=== PATIENT | male | born 1980 | race Caucasian/White ===

== ENCOUNTER 2017-07-03 16:05 | Emergency (ER) | payer OTHER ==
[2017-07-03 16:10] VITALS: BP 121/97; PULSE 79; RESP 17; TEMP 97.7; O2SAT 98
--- NOTE | 2017-07-03 16:45 | EDPHY ---
H & P Time Seen by Provider: 07/03/17 16:44 HPI/ROS: Chief complaint. Abdominal pain HPI. Patient is 36-year-old male left upper quadrant pain for about 2 hr. He describes it as intermittent muscle spasms that are somewhat sharp and stabbing. Is located in the left upper quadrant of his abdomen. No radiation. He thinks his muscles might be tight from his work out yesterday. He has had similar symptoms previously. He took a Flexeril about 1 and 0.5 hr ago after the onset. His appetite is okay. No vomiting or diarrhea. Again he describes it as spasms. No urinary symptoms. No chest discomfort or trouble breathing. Denies trauma ROS Constitutional. no fever/chills, no weakness Eyes. no problems with vision ENT. no sore throat, no nasal drainage Cardiovascular. no chest pain Respiratory. no shortness of breath, no cough Abdominal. Left upper quadrant abdominal pain and muscle spasm . no problems urinating MS. no calf pain/swelling, no neck/back pain, no joint pain Skin. no rash Lymph. no swollen glands Neuro. no headache, no dizziness, no difficulty walking or with speech Past Medical/Surgical History: Left arm surgery, penile fracture Social History: , daily smoker, no alcohol Smoking Status: Heavy smoker Physical Exam: General Appearance: Alert well-developed male mild distress vital signs are stable Eyes: Pupils equal and round no pallor or injection. ENT, Mouth: Mucous membranes are moist. Respiratory: There are no retractions, lungs are clear to auscultation. Cardiovascular: Regular rate and rhythm. Gastrointestinal: Abdomen is soft with mild left upper quadrant tenderness. No masses are present. Normal bowel sounds. No muscle spasm currently. Neurological: Awake and alert, sensory and motor exams grossly normal. Skin: Warm and dry, no rashes. Musculoskeletal: Neck is supple nontender. Extremities symmetrical, full range of motion. Psychiatric: Patient is oriented X 3, there is no agitation. Constitutional: Initial Vital Signs Temperature (C) 36.5 C 07/03/17 16:08 Heart Rate 79 07/03/17 16:08 Respiratory Rate 17 07/03/17 16:08 Blood Pressure 121/97 H 07/03/17 16:08 O2 Sat (%) 98 07/03/17 16:08 O2 Delivery Mode Room Air Allergies/Adverse Reactions: No Known Allergies Allergy (Verified 07/03/17 16:07) Home Medications: Medication Instructions Recorded Cyclobenzaprine [Flexeril 10 MG 10 mg PO TID PRN #15 tab 07/03/17 (*)] Medical Decision Making ED Course/Re-evaluation: Re-evaluation 6:00 p.m.. Patient is stable. His spasm symptoms of the abdominal musculature are decreasing. The patient, his , and I discussed lab results including treatment plan and importance of follow-up and further evaluation as well as criteria for return. They expressed understanding and agreed Differential Diagnosis: This appears to be abdominal musculature spasm. Possibly from working out yesterday. No evidence for acute abdomen. I considered kidney stone as well as pancreatitis. - Data Points Laboratory Results: Laboratory Results 07/03/17 17:05 07/03/17 17:05 07/03/17 07/03/17 07/03/17 17:05 17:05 17:05 WBC 4.74 10^3/uL 10^3/uL (3.80-9.50) RBC 4.21 10^6/uL L 10^6/uL (4.40-6.38) Hgb 14.1 g/dL g/dL (13.7-17.5) Hct 39.1 % L % (40.0-51.0) MCV 92.9 fL fL (81.5-99.8) MCH 33.5 pg pg (27.9-34.1) MCHC 36.1 g/dL g/dL (32.4-36.7) RDW 12.2 % % (11.5-15.2) Plt Count 272 10^3/uL 10^3/uL (150-400) MPV 9.0 fL fL (8.7-11.7) Neut % (Auto) 51.4 % % (39.3-74.2) Lymph % (Auto) 36.3 % % (15.0-45.0) Foster % (Auto) 9.9 % % (4.5-13.0) Eos % (Auto) 1.1 % % (0.6-7.6) Baso % (Auto) 1.1 % % (0.3-1.7) Nucleat RBC Rel Count 0.0 % % (0.0-0.2) Absolute Neuts (auto) 2.44 10^3/uL 10^3/uL (1.70-6.50) Absolute Lymphs (auto) 1.72 10^3/uL 10^3/uL (1.00-3.00) Absolute Monos (auto) 0.47 10^3/uL 10^3/uL (0.30-0.80) Absolute Eos (auto) 0.05 10^3/uL 10^3/uL (0.03-0.40) Absolute Basos (auto) 0.05 10^3/uL 10^3/uL (0.02-0.10) Absolute Nucleated RBC 0.00 10^3/uL 10^3/uL (0-0.01) Immature Gran % 0.2 % % (0.0-1.1) Immature Gran # 0.01 10^3/uL 10^3/uL (0.00-0.10) Sodium 146 mEq/L H mEq/L (134-144) Potassium 4.0 mEq/L mEq/L (3.5-5.2) Chloride 106 mEq/L mEq/L (97-110) Carbon Dioxide 22 mEq/l mEq/l (22-31) Anion Gap 18 mEq/L H mEq/L (8-16) BUN 8 mg/dL mg/dL (7-23) Creatinine 0.9 mg/dL mg/dL (0.7-1.3) Estimated GFR > 60 Glucose 103 mg/dL H mg/dL (70-100) Calcium 9.8 mg/dL mg/dL (8.5-10.4) Total Bilirubin 0.2 mg/dL mg/dL (0.1-1.4) Conjugated Bilirubin 0.2 mg/dL mg/dL (0.0-0.5) Unconjugated Bilirubin 0.0 mg/dL mg/dL (0.0-1.1) AST 63 IU/L H IU/L (17-59) ALT 70 IU/L IU/L (21-72) Alkaline Phosphatase 69 IU/L IU/L (38-126) Total Protein 7.6 g/dL g/dL (6.3-8.2) Albumin 4.5 g/dL g/dL (3.5-5.0) Lipase 55 IU/L IU/L (23-300) Urine Color PALE YELLOW Urine Appearance CLEAR Urine pH 6.0 (5.0-7.5) Ur Specific [place] 1.002 (1.002-1.030) Urine Protein NEGATIVE (NEGATIVE) Urine Ketones NEGATIVE (NEGATIVE) Urine Blood NEGATIVE (NEGATIVE) Urine Nitrate NEGATIVE (NEGATIVE) Urine Bilirubin NEGATIVE (NEGATIVE) Urine Urobilinogen NEGATIVE EU EU (0.2-1.0) Ur Leukocyte Esterase NEGATIVE (NEGATIVE) Urine RBC 3-5 /hpf H /hpf (0-3) Urine WBC 1-3 /hpf /hpf (0-3) Ur Epithelial Cells NONE SEEN /lpf /lpf (NONE-1+) Urine Bacteria TRACE /hpf H /hpf (NONE SEEN) Urine Glucose NEGATIVE (NEGATIVE) Departure - Departure Disposition: Home, Routine, Self-Care Clinical Impression: Abdominal pain Qualifiers: Abdominal location: left upper quadrant Qualified Code(s): R10.12 - Left upper quadrant pain Condition: Good Instructions: Abdominal Pain (ED) Additional Instructions: Heat to the sore area of your abdomen. Ibuprofen 600 mg every 6 hr. Flexeril also as needed for muscle spasm. Return for fever, worsening pain, vomiting. Recheck in 2 days if not improved Referrals: NONE *PRIMARY CARE P,. [Primary Care Provider] - As per Instructions Promise Humphrey MD [Medical Doctor] - 2-3 days, if not improved Prescriptions: Cyclobenzaprine [Flexeril 10 MG (*)] 10 mg PO TID PRN #15 tab PRN Reason: Spasms
[2017-07-03 17:29] LABS: % IMMATURE GRANULYOCYTES 0.2 % (0.0-1.1); ABSOLUTE IMMATURE GRANULOCYTES 0.01 10^3/uL (0.00-0.10); ADD DIFF? NO; ADD MORPH? NO; ADD SCAN? NO; ATYPICAL LYMPHOCYTE FLAG 10 (0-99); FRAGMENT RBC FLAG 0 (0-99); HEMATOCRIT 39.1 % (40.0-51.0); HEMOGLOBIN 14.1 g/dL (13.7-17.5); LEFT SHIFT FLG 0 (0-99); LIPEMIA HEMOLYSIS FLAG 90 (0-99); MEAN CELL HEMOGLOBIN 33.5 pg (27.9-34.1); MEAN CELL HEMOGLOBIN CONCENTR. 36.1 g/dL (32.4-36.7); MEAN CELL VOLUME 92.9 fL (81.5-99.8); PLATELET CLUMPS FLAG 10 (0-99); PLATELET COUNT 272 10^3/uL (150-400); RED BLOOD CELL COUNT 4.21 10^6/uL (4.40-6.38); RED CELL DISTRIBUTION WIDTH 12.2 % (11.5-15.2)
[2017-07-03 17:35] LABS: ALANINE AMINOTRANSFERASE 70 IU/L (21-72); ALBUMIN 4.5 g/dL (3.5-5.0); ALKALINE PHOSPHATASE 69 IU/L (38-126); ANION GAP 18 mEq/L (8-16); ASPARTATE AMINOTRANSFERASE 63 IU/L (17-59); BILIRUBIN,TOTAL 0.2 mg/dL (0.1-1.4); BILIRUBIN-CONJUGATED 0.2 mg/dL (0.0-0.5); CALCIUM 9.8 mg/dL (8.5-10.4); CARBON DIOXIDE 22 mEq/l (22-31); CHLORIDE 106 mEq/L (97-110); CREATININE 0.9 mg/dL (0.7-1.3); GLOMERULAR FILTRATION RATE > 60; GLUCOSE 103 mg/dL (70-100); SODIUM 146 mEq/L (134-144); TOTAL PROTEIN 7.6 g/dL (6.3-8.2)
[2017-07-03 17:37] LABS: COLOR PALE YELLOW; LEUKOCYTE ESTERASE,URINE NEGATIVE (NEGATIVE); NITRITE,URINE NEGATIVE (NEGATIVE)
[2017-07-03 17:38] LABS: BACTERIA TRACE /hpf (NONE SEEN)
== END 2017-07-03 18:15 | disposition home or self-care (01) ==
DX: R10.12 Left upper quadrant pain (principal); F17.200 Nicotine dependence, unspecified, uncomplicated

== ENCOUNTER 2018-07-13 18:11 | Emergency (ER) | payer OTHER ==
[2018-07-13] MEDS ORDERED: LET GEL TOPICAL 1 EA SYR TP ONE (18:31)
[2018-07-13] MEDS ORDERED: FOLIC ACID 1 MG TAB PO ONE (18:32)
[2018-07-13] MEDS ORDERED: THIAMINE HCL 100 MG TAB PO ONE (18:32)
[2018-07-13] MEDS ORDERED: NS 1,000 ML IV ONE (18:32)
[2018-07-13] MEDS ORDERED: MULTIVITAMINS 1 EACH TAB PO ONE (18:32)
[2018-07-13] MEDS ORDERED: LORazepam 2 MG/ML INJ IVP ONE ×2 (18:33→18:46)
[2018-07-13] MEDS ORDERED: ONDANSETRON 4 MG/2 ML VIAL IVP ONE (18:34)
--- NOTE | 2018-07-13 18:34 | EDPHY ---
H & P Time Seen by Provider: 07/13/18 18:18 HPI/ROS: CHIEF COMPLAINT: Seizure, head laceration HISTORY OF PRESENT ILLNESS: The patient is a 37-year-old male with a history of alcoholism brought here by police for reported seizure while in shelter. States he has a long history of alcoholism drinks about 6-8 beers per day. He was currently incarcerated for last 2 days did not drink and then he was in the process of being released today and had a seizure that was witnessed in shelter. He denies any pain other than pain ray is a laceration to his forehead. Denies any vision changes, neck pain, arm paresthesias, chest brain. He denies any drug use other than alcohol and marijuana. Denies any cardiac history or history of prior withdrawal seizures. REVIEW OF SYSTEMS: Constitutional: No fever, no chills. Eyes: No discharge. ENT: No sore throat. Cardiovascular: No chest pain, no palpitations. Respiratory: No cough, no shortness of breath. Gastrointestinal: No abdominal pain, no vomiting. Genitourinary: No hematuria. Musculoskeletal: No back pain. Skin: No rashes. Neurological: + headache. Smoking Status: Heavy smoker Physical Exam: General Appearance: Alert and no distress. ENT: normal dentition. No tonsillar exudate or swelling. Eyes: Pupils equal and round no injection. Respiratory: Chest is nontender, lungs are clear to auscultation. Cardiac: regular rate and rhythm. No lower extremity edema Gastrointestinal: Abdomen is soft and nontender, no masses, bowel sounds normal. Musculoskeletal: Neck is supple and nontender. Extremities have full range of motion and are nontender without deformity Skin: No rashes. 3 cm the vertical laceration the to the forehead Neuro: Cranial nerves grossly intact. No nystagmus. Normal [id number] testing. No ulnar drift. Equal grasp bilateral hands. Ambulatory. Constitutional: Initial Vital Signs Temperature (C) 36.7 C 07/13/18 18:12 Heart Rate 83 07/13/18 18:12 Respiratory Rate 16 07/13/18 18:12 Blood Pressure 175/106 H 07/13/18 18:12 O2 Sat (%) 92 07/13/18 18:12 O2 Delivery Mode Room Air Allergies/Adverse Reactions: No Known Allergies Allergy (Verified 07/13/18 18:12) Medical Decision Making - Diagnostics Imaging Results: Imaging Impressions Head CT 07/13/18 18:31 Impression: 1. No significant intracranial abnormality seen. 2. Soft tissue contusion and laceration over anterior frontal bone without fracture. If symptoms worsen, additional imaging may be necessary. Findings discussed with Dr. Mosley answering for Nick Loydtaglia PAC at 18:49 hour, 07/13/2018. Procedures: Procedure: Laceration repair. Verbal consent was obtained from the patient. The 2.5 cm laceration on the scalp was anesthetized in the usual fashion. The wound was irrigated, draped and explored to its base. There were no deep structures involved. No tendon injury was identified. The wound was repaired with 6.0 nylon. 5 sutures were placed. The procedure was performed by myself. ED Course/Re-evaluation: 37-year-old male here with witness seizure and shelter. CT scan of his head revealed no acute bleed or skull fracture. Laceration repair these forehead laceration as detailed below. Labs reveal elevated blood sugar 200 with a in a gap of 15. He received IV fluids, 2 mg Ativan IV and Zofran in remained stable with no tremor or seizure activity was observed for close to 4 hr. Did not require any additional Ativan to control his tremors. Recheck BMP reveals blood sugar of 100 and anion gap has closed. Magnesium was within normal limits. I did offer the patient transferred to the arc but he declined and would like to go home with her friend. His given a small amount of Ativan to take as needed if he had any return tremor or seizure-like activity. Additionally he is referred to primary care for further workup regarding his seizures. Differential Diagnosis: Meningitis, encephalitis, intracranial bleed, skull fracture, electrolyte disturbance, alcohol withdrawal - Data Points Laboratory Results: Laboratory Results 07/13/18 18:30 07/13/18 20:30 07/13/18 07/13/18 07/13/18 20:30 18:30 18:30 WBC 6.04 10^3/uL 10^3/uL (3.80-9.50) RBC 4.28 10^6/uL L 10^6/uL (4.40-6.38) Hgb 14.3 g/dL g/dL (13.7-17.5) Hct 41.6 % % (40.0-51.0) MCV 97.2 fL fL (81.5-99.8) MCH 33.4 pg pg (27.9-34.1) MCHC 34.4 g/dL g/dL (32.4-36.7) RDW 12.7 % % (11.5-15.2) Plt Count 180 10^3/uL 10^3/uL (150-400) MPV 9.3 fL fL (8.7-11.7) Neut % (Auto) 82.9 % H % (39.3-74.2) Lymph % (Auto) 8.8 % L % (15.0-45.0) Lares % (Auto) 7.3 % % (4.5-13.0) Eos % (Auto) 0.0 % L % (0.6-7.6) Baso % (Auto) 0.5 % % (0.3-1.7) Nucleat RBC Rel Count 0.0 % % (0.0-0.2) Absolute Neuts (auto) 5.01 10^3/uL 10^3/uL (1.70-6.50) Absolute Lymphs (auto) 0.53 10^3/uL L 10^3/uL (1.00-3.00) Absolute Monos (auto) 0.44 10^3/uL 10^3/uL (0.30-0.80) Absolute Eos (auto) 0.00 10^3/uL L 10^3/uL (0.03-0.40) Absolute Basos (auto) 0.03 10^3/uL 10^3/uL (0.02-0.10) Absolute Nucleated RBC 0.00 10^3/uL 10^3/uL (0-0.01) Immature Gran % 0.5 % % (0.0-1.1) Immature Gran # 0.03 10^3/uL 10^3/uL (0.00-0.10) RBC/WBC/PLT Morphology TNP Platelet Estimate TNP Sodium 137 mEq/L mEq/L 136 mEq/L mEq/L (135-145) (135-145) Potassium 4.0 mEq/L mEq/L 4.1 mEq/L mEq/L (3.5-5.2) (3.5-5.2) Chloride 103 mEq/L mEq/L 98 mEq/L mEq/L (97-110) (97-110) Carbon Dioxide 23 mEq/l mEq/l 23 mEq/l mEq/l (22-31) (22-31) Anion Gap 11 mEq/L mEq/L 15 mEq/L H mEq/L (6-14) (6-14) BUN 9 mg/dL mg/dL 8 mg/dL mg/dL (7-23) (7-23) Creatinine 0.7 mg/dL mg/dL 0.8 mg/dL mg/dL (0.7-1.3) (0.7-1.3) Estimated GFR > 60 > 60 Glucose 101 mg/dL H mg/dL 204 mg/dL H mg/dL (70-100) (70-100) Calcium 9.0 mg/dL mg/dL 9.8 mg/dL mg/dL (8.5-10.4) (8.5-10.4) Magnesium 2.1 mg/dL mg/dL (1.6-2.3) Medications Given: Discontinued Medications Folic Acid (Folic Acid) 1 mg PO EDNOW ONE Stop: 07/13/18 18:33 Last Admin: 07/13/18 18:49 Dose: 1 mg Sodium Chloride (Ns) 1,000 mls @ 0 mls/hr IV EDNOW ONE; Wide Open PRN Reason: Protocol Stop: 07/13/18 18:33 Last Admin: 07/13/18 18:49 Dose: 1,000 mls Lorazepam (Ativan Injection) 1 mg IVP ONCE ONE Stop: 07/13/18 18:34 Last Admin: 07/13/18 18:50 Dose: Not Given Lorazepam (Ativan Injection) 2 mg IVP EDNOW ONE Stop: 07/13/18 18:47 Last Admin: 07/13/18 18:49 Dose: 2 mg Lorazepam (Ativan 1 Mg Prepack#4) 1 btl TAKEHOME EDNOW ONE Stop: 07/13/18 21:22 Last Admin: 07/13/18 21:34 Dose: 1 btl Multivitamins (Tab-A-Xavier) 1 each PO EDNOW ONE Stop: 07/13/18 18:33 Last Admin: 07/13/18 18:49 Dose: 1 each Ondansetron HCl (Zofran) 4 mg IVP EDNOW ONE Stop: 07/13/18 18:35 Last Admin: 07/13/18 18:46 Dose: 4 mg Tetracaine/Epinephrine/Lidocaine (Let Gel Topical) 1 ea TP EDNOW ONE Stop: 07/13/18 18:32 Last Admin: 07/13/18 18:49 Dose: 1 ea Thiamine HCl (Vitamin B-1) 100 mg PO EDNOW ONE Stop: 07/13/18 18:33 Last Admin: 07/13/18 18:48 Dose: 100 mg Departure - Departure Disposition: Home, Routine, Self-Care Clinical Impression: Seizure, Scalp laceration Condition: Good Instructions: Lorazepam (By mouth), Alcohol Withdrawal (ED), New-Onset Seizure in Adults (ED) Additional Instructions: Please follow up with a primary care physician in the next 2-3 days to re- evaluate your symptoms and discuss referral to Neurology and EEG. Return to the ER for any recurrent seizures. He may take 1 mg of Ativan as needed if you feel the he may be having a seizure or if you develop tremors or other signs of acute alcohol withdrawal. Referrals: NONE *PRIMARY CARE P,. [Primary Care Provider] - As per Instructions Isha Valentin MD [[facility] [place] Primary Care Provider] - As per Instructions
[2018-07-13 18:40] LABS: PLATELET COUNT 180 10^3/uL (150-400)
[2018-07-13 21:03] VITALS: BP 127/92
[2018-07-13] MEDS ORDERED: SKIN ADHESIVE (DERMABOND) 1 EACH TP ONE (21:15)
[2018-07-13] MEDS ORDERED: LORAZEPAM 1 MG PREPACK#4 BTL TAKEHOME ONE (21:21)
--- NOTE | 2018-07-13 22:40 | CPEKG ---
Test Reason : OPEN Blood Pressure : / mmHG Vent. Rate : 075 BPM Atrial Rate : 074 BPM P-R Int : 132 ms QRS Dur : 087 ms QT Int : 368 ms P-R-T Axes : 072 040 029 degrees QTc Int : 411 ms Sinus rhythm Confirmed by Liban Claudio ([id number]) on 07/13/2018 10:39:33 PM Referred By: Confirmed By:Liban Claudio
== END 2018-07-13 21:40 | disposition home or self-care (01) ==
LOC: EEVIPCON 18:11
PROC: 0HQ0XZZ Repair Scalp Skin, External Approach (ICD-10-PCS; principal; 2018-07-13)
DX: S01.01XA Laceration without foreign body of scalp, initial encounter (principal); R56.9 Unspecified convulsions; X58.XXXA Exposure to other specified factors, initial encounter; Y92.149 Unspecified place in prison as the place of occurrence of the external cause; Y93.9 Activity, unspecified; Y99.9 Unspecified external cause status
CPT/HCPCS: 96374; J2060; J2405

== ENCOUNTER 2018-09-25 21:38 | Emergency (ER) | payer OTHER | END 2018-09-25 23:56 | disposition home or self-care (01) ==

== ENCOUNTER 2018-11-03 09:44 | Emergency (ER) | payer OTHER ==
--- NOTE | 2018-11-03 09:56 | EDPHY ---
H & P Stated Complaint: Fall/L foot pain Time Seen by Provider: 11/03/18 09:53 HPI/ROS: HPI: This is a 37-year-old male who presents with Chief Complaint: Left foot injury, left shoulder injury Location: Left lateral foot and left shoulder Quality: Injury Duration: Yesterday evening, 8-12 hours prior to arrival Signs and Symptoms: No bleeding, no radiation, no numbness, no weakness, no tingling, no incontinence, no decreased range of motion, + swelling, + pain, no fever Timing: Acute Severity: Moderate Context: Patient is right-hand dominant, reports that he accidentally tripped and fell while wearing socks with flip flops yesterday evening. He reports that he rolled his left ankle out words and felt a pulling and popping sensation in the lateral aspect. He reports that he has swelling in the lateral aspect with associated pain. He also fell directly onto his left lateral shoulder and complains of some mild discomfort with external rotation and AB duction of his left shoulder denies any weakness, decreased range of motion. Denies LOC/head injury/neck pain/dizziness/nausea/vomiting/amnesia. Modifying Factors: None Comment: ROS: A comprehensive 10 system review of systems is otherwise negative aside from elements mentioned in the history of present illness. MEDICAL/SURGICAL/SOCIAL HISTORY: Medical history: Penile fracture. Does not take any regular medications. Surgical history: Left arm surgery Social history: Marijuana user. Tobacco user. CONSTITUTIONAL: Well-developed, well-nourished, adult white male, awake and alert, no obvious distress HEENT: Atraumatic and normocephalic. NECK: supple, no midline tenderness, flexion 45 degrees, extension 45 degrees, right and left lateral flexion 45 degrees. No meningismus. Cardiovascular: Normal S1/S2, regular rate, regular rhythm, without murmur rub or gallop. PULMONARY/CHEST: Symmetrical and nontender. no crepitus. Clear to auscultation bilaterally. Good air movement. No accessory muscle usage. ABDOMEN: Soft, nondistended, nontender, no ecchymosis. EXTREMITIES: 2/2 pulses, strength 5/5, left SHOULDER: Arc test abduction to 180, abduction to 45, horizontal flexion 130, horizontal extension to 45, deltoid strength 5/5. Mild pain with Neer test/Anthony test (impingement). No Tenderness to palpation over AC joint. Left Ankle: Moderate left lateral malleolus swelling and bruising, Plantar flexion to 50, dorsiflexion to 20. Foot inversion to 35 degree. Moderate tenderness/swelling Anterior talofibular ligament. No tenderness/swelling Calcaneofibular ligament, no tenderness/ swelling posterior talofibular ligament, no tenderness/swelling posterior inferior tibiofibular ligament. Achilles tendon intact. DIP/PIP/MCP flexion/ extension intact with good light touch sensation. no deformities, no clubbing, no cyanosis or edema. NEUROLOGICAL: no focal neuro deficits. GCS 15. Light touch sensation intact. SKIN: Warm and dry, no erythema. no rash. Good capillary refill. Source: Patient Exam Limitations: No limitations - Personal History Current Tetanus/Diphtheria Vaccine: Yes Tetanus Vaccine Date: WITHIN 10 YRS - Medical/Surgical History Hx Asthma: No Hx Chronic Respiratory Disease: No Hx Diabetes: No Hx Cardiac Disease: No Hx Renal Disease: No Hx Cirrhosis: No Hx Alcoholism: Yes Hx HIV/AIDS: No Hx Splenectomy or Spleen Trauma: No Other PMH: Left Arm surgery. Penile fx 04/11/14 - Social History Smoking Status: Heavy smoker Constitutional: Initial Vital Signs Temperature (C) 36.8 C 11/03/18 09:49 Heart Rate 100 11/03/18 09:49 Respiratory Rate 18 11/03/18 09:49 Blood Pressure 116/79 11/03/18 09:49 O2 Sat (%) 99 11/03/18 09:49 O2 Delivery Mode Room Air Allergies/Adverse Reactions: No Known Allergies Allergy (Verified 11/03/18 09:51) Home Medications: Medication Instructions Recorded NK [No Known Home Meds] 09/25/18 Medical Decision Making - Diagnostics Imaging Results: Imaging Impressions Ankle X-Ray 11/03/18 10:32 Impression: Age-indeterminate acute versus subacute extensor digitorum brevis avulsion chip fracture off lateral body of calcaneus. Findings discussed with Emergency Department physician instruction assistant principal, Dominique Landeros, on 11/03/2018 at 11:05 a.m. Procedures: Procedure: Splint placement. A left walking boot and crutches were applied. After application of the splint I returned and re-examined the patient. The splint was adequately immobilizing the joint and distal to the splint the patient's circulation and sensation was intact. ED Course/Re-evaluation: Vital signs reviewed and stable upon arrival. Left shoulder x-ray and left foot x-ray ordered Left shoulder x-ray my read via bedside imaging shows no fracture, significant degenerative changes. Suspect mild sprain versus impingement syndrome. Left foot x-ray my read possible small tiny avulsion at the longus brevis muscle Placed in walking boot, crutches, toe-touch weight-bearing, orthopedic follow-up No signs of neurovascular compromise/tenting of skin/compartment syndrome/ extremities and joints examined above and below area of concern and are neurovascularly intact. This patient was seen under the supervision of my secondary supervising physician. I evaluated care for this patient with attending. Differential Diagnosis: Ankle injury differential diagnosis includes but is not limited to tibia fracture, fibula fracture, metatarsal fracture, LisFranc fracture, achilles tendon rupture, sprain. Departure - Departure Disposition: Home, Routine, Self-Care Clinical Impression: Suspected fracture of bone Sprain of left shoulder Qualifiers: Encounter type: initial encounter Shoulder sprain type: unspecified sprain Qualified Code(s): S43.402A - Unspecified sprain of left shoulder joint, initial encounter Moderate left ankle sprain Qualifiers: Encounter type: initial encounter Qualified Code(s): S93.402A - Sprain of unspecified ligament of left ankle, initial encounter Condition: Good Instructions: Ankle Sprain (ED), Shoulder Sprain (ED) Additional Instructions: Wear the walking boot while out of bed until pain free or seen by Orthopedics. Use crutches to aid ambulation. Start with toe-touch weight-bearing status. Take Tylenol 650 mg every 4 hours and/or Ibuprofen 600 mg every 8 hours with food as needed for pain. Apply ice for 30 minutes at a time; 2-3 times per day for the next 1-2 days. Follow up with Orthopedics in 7-10 days symptoms persist at which time they will evaluate and recommend with you if conservative management versus further imaging is indicated. The x-rays obtained in the emergency department today demonstrate possible avulsion fracture. Sometimes fractures are not obvious on the initial set of x- rays performed in the ED. For this reason, you should have repeat x-rays performed in 7-10 days if you are having any pain exclude the possibility of an occult fracture. Referrals: Maykel Mc MD [Primary Care Provider] - As per Instructions Wale Dominguez MD [Medical Doctor] - As per Instructions
[2018-11-03 11:23] VITALS: BP 123/85
== END 2018-11-03 11:23 | disposition home or self-care (01) ==
DX: S43.402A Unspecified sprain of left shoulder joint, initial encounter (principal); S93.402A Sprain of unspecified ligament of left ankle, initial encounter; W18.41XA Slipping, tripping and stumbling without falling due to stepping on object, initial encounter
CPT/HCPCS: L4386

== ENCOUNTER 2018-12-07 10:30 | Emergency (ER) | payer OTHER ==
[2018-12-07 11:19] LABS: PLATELET COUNT 271 10^3/uL (150-400)
--- NOTE | 2018-12-07 12:02 | EDPHY ---
H & P Stated Complaint: blood in stools Time Seen by Provider: 12/07/18 10:41 HPI/ROS: Chief complaint: Blood in stool History of present illness: This is a 37-year-old male who presents to the emergency department for evaluation of blood in his stool. Patient reports he has noticed intermittent bleeding over the last few days. He primarily notes bright red blood towards the end of wiping. It is not actually in the stool or the toilet bowl. He may have seen some dark/black blood at the same time but is not sure. He denies any precipitating factors. He denies alleviating factors. He denies other associated signs or symptoms including no fevers, no abdominal pain, no nausea or vomiting, no systemic symptoms such as fatigue, lightheadedness, weakness. Review of systems: A 10 point review of systems was obtained and other than described above was negative. - Personal History Current Tetanus Diphtheria and Acellular Pertussis (TDAP): Yes Tetanus Vaccine Date: WITHIN 10 YRS - Medical/Surgical History Hx Asthma: No Hx Chronic Respiratory Disease: No Hx Diabetes: No Hx Cardiac Disease: No Hx Renal Disease: No Hx Cirrhosis: No Hx Alcoholism: Yes Hx HIV/AIDS: No Hx Splenectomy or Spleen Trauma: No Other PMH: Left Arm surgery. Penile fx 04/11/14 - Social History Smoking Status: Heavy smoker - Physical Exam Exam: General Appearance: Alert, nontoxic. Eyes: Pupils equal and round no pallor or injection. ENT, Mouth: Mucous membranes moist. Respiratory: There are no retractions, lungs are clear to auscultation. Cardiovascular: Regular rate and rhythm. Gastrointestinal: Abdomen is soft and non tender, no masses, bowel sounds normal. Rectal: Nonthrombosed external hemorrhoid at the 6 o'clock position Neurological: Alert. Strength and sensation intact and symmetrical. Skin: Warm and dry, no rashes. Musculoskeletal: Neck is supple non tender. Extremities are symmetrical, full range of motion. Psychiatric: Patient is oriented X 3, there is no agitation. Constitutional: Initial Vital Signs Temperature (C) 36.5 C 12/07/18 10:32 Heart Rate 81 12/07/18 10:32 Respiratory Rate 17 12/07/18 10:32 Blood Pressure 130/85 H 12/07/18 10:32 O2 Sat (%) 99 12/07/18 10:32 O2 Delivery Mode Room Air Allergies/Adverse Reactions: No Known Allergies Allergy (Verified 12/07/18 10:32) Home Medications: Medication Instructions Recorded NK [No Known Home Meds] 09/25/18 Medical Decision Making ED Course/Re-evaluation: Patient seen under the supervision of my secondary supervising physician Dr. Elvis Cage. Patient presents to the emergency department for evaluation of rectal bleeding. He appears to only have bright red blood after he wipes after having a bowel movement. He is nontoxic. Vital signs are stable. He has a benign abdominal exam. H&H is within normal limits. The stool guaiac is negative. Hemorrhoid is noted. My suspicion for serious pathology is low. He will be discharged home. Home care is discussed. He is to follow up with a primary care doctor or GI doctor for recheck. Strict return precautions are given. Patient voiced understanding and agreement with plan. Differential Diagnosis: Included but not limited to hemorrhoids, rectal tear, lower GI bleed such is particularly is a upper GI bleed including peptic ulcer disease, coagulopathy - Data Points Laboratory Results: Laboratory Results 12/07/18 11:10 12/07/18 11:10 12/07/18 12/07/18 12/07/18 11:21 11:10 11:10 WBC 5.03 10^3/uL 10^3/uL (3.80-9.50) RBC 4.56 10^6/uL 10^6/uL (4.40-6.38) Hgb 14.5 g/dL g/dL (13.7-17.5) Hct 41.1 % % (40.0-51.0) MCV 90.1 fL fL (81.5-99.8) MCH 31.8 pg pg (27.9-34.1) MCHC 35.3 g/dL g/dL (32.4-36.7) RDW 11.9 % % (11.5-15.2) Plt Count 271 10^3/uL 10^3/uL (150-400) MPV 9.1 fL fL (8.7-11.7) Neut % (Auto) 62.6 % % (39.3-74.2) Lymph % (Auto) 24.9 % % (15.0-45.0) Hunt % (Auto) 9.7 % % (4.5-13.0) Eos % (Auto) 1.8 % % (0.6-7.6) Baso % (Auto) 0.8 % % (0.3-1.7) Nucleat RBC Rel Count 0.0 % % (0.0-0.2) Absolute Neuts (auto) 3.15 10^3/uL 10^3/uL (1.70-6.50) Absolute Lymphs (auto) 1.25 10^3/uL 10^3/uL (1.00-3.00) Absolute Monos (auto) 0.49 10^3/uL 10^3/uL (0.30-0.80) Absolute Eos (auto) 0.09 10^3/uL 10^3/uL (0.03-0.40) Absolute Basos (auto) 0.04 10^3/uL 10^3/uL (0.02-0.10) Absolute Nucleated RBC 0.00 10^3/uL 10^3/uL (0-0.01) Immature Gran % 0.2 % % (0.0-1.1) Immature Gran # 0.01 10^3/uL 10^3/uL (0.00-0.10) Sodium 138 mEq/L mEq/L (135-145) Potassium 4.6 mEq/L mEq/L (3.5-5.2) Chloride 104 mEq/L mEq/L (97-110) Carbon Dioxide 24 mEq/l mEq/l (22-31) Anion Gap 10 mEq/L mEq/L (6-14) BUN 11 mg/dL mg/dL (7-23) Creatinine 0.8 mg/dL mg/dL (0.7-1.3) Estimated GFR > 60 Glucose 94 mg/dL mg/dL (70-100) Calcium 9.8 mg/dL mg/dL (8.5-10.4) Stool Occult Bld Scrn NEGATIVE (NEGATIVE) Departure - Departure Disposition: Home, Routine, Self-Care Clinical Impression: Hemorrhoid Qualifiers: Hemorrhoid type: unspecified Qualified Code(s): K64.9 - Unspecified hemorrhoids Condition: Good Instructions: Hemorrhoids (ED) Additional Instructions: Follow-up with a primary care doctor or binitrotoluene operator for continued evaluation and care If symptoms recur or new symptoms develop return to the emergency room for recheck Referrals: Maykel Mc MD [Primary Care Provider] - As per Instructions Elvis Joseph MD [Medical Doctor] - As per Instructions
[2018-12-07 12:12] VITALS: BP 110/69
== END 2018-12-07 12:18 | disposition home or self-care (01) ==
DX: K64.9 Unspecified hemorrhoids (principal); F17.200 Nicotine dependence, unspecified, uncomplicated